=== PATIENT | female | born 1980 | race Two or more races ===

== ENCOUNTER 2018-08-04 18:51 | Emergency (ER) | payer SELFPAY ==
[2018-08-04 19:07] VITALS: BMI 23.3
[2018-08-04 19:08] VITALS: TEMP 98.7; O2SAT 100
[2018-08-04] MEDS ORDERED: Oxycodone/Acetaminophen 5/325 mg Tab PO STA (19:13)
--- NOTE | 2018-08-04 19:17 | ED PDOC ---
Arrival/HPI - General Chief Complaint: Dental Pain Historian: Patient - History of Present Illness Narrative History of Present Illness (Text): 08/04/18 19:13 37 y/o female,no significant pmh, nkda, c/o lt. lower molar dental pain x 2 days with no fall or trauma. Aching pain, no pain medication at home, painful to chew and eat, no change in vision, no palpitation, no night sweat, no numbness or tingling, no palpitation, no rash, no other medical or psychological complaints. Past Medical History - Provider Review Nursing Documentation Reviewed: Yes - Infectious Disease Hx of Infectious Diseases: None - Cardiac Hx Cardiac Disorders: No - Pulmonary Hx Respiratory Disorders: Yes Hx Asthma: Yes - Neurological Hx Neurological Disorder: No - HEENT Hx HEENT Disorder: No - Renal Hx Renal Disorder: No - Endocrine/Metabolic Hx Endocrine Disorders: No - Hematological/Oncological Hx Blood Disorders: No - Integumentary Hx Dermatological Disorder: No - Musculoskeletal/Rheumatological Hx Musculoskeletal Disorders: No - Gastrointestinal Hx Gastrointestinal Disorders: No - Genitourinary/Gynecological Hx Genitourinary Disorders: No - Psychiatric Hx Psychophysiologic Disorder: No Hx Substance Use: No - Surgical History Hx Section: Yes (x 1) Family/Social History - Physician Review Nursing Documentation Reviewed: Yes Family/Social History: Unknown Family HX Smoking Status: Never Smoked Hx Alcohol Use: No Hx Substance Use: No Allergies/Home Meds Allergies/Adverse Reactions: Allergies Unobtainable Allergy (Verified 08/04/18 19:07) Review of Systems - Review of Systems Constitutional: absent: Fatigue, Fevers Eyes: absent: Vision Changes ENT: Other (+dental pain). absent: Hearing Changes Respiratory: absent: SOB, Cough Gastrointestinal: absent: Abdominal Pain, Diarrhea, Nausea, Vomiting Musculoskeletal: absent: Arthralgias, Back Pain Skin: absent: Rash, Pruritis Neurological: absent: Headache Psychiatric: absent: Anxiety, Depression, Suicidal Ideation Physical Exam Vital Signs Reviewed: Yes Vital Signs Temp Pulse Resp BP Pulse Ox 08/04/18 19:07 98.7 F 76 19 163/85 H 100 Temperature: Afebrile Blood Pressure: Hypertensive Pulse: Regular Respiratory Rate: Normal Appearance: Positive for: Well-Appearing, Non-Toxic, Comfortable Pain Distress: Moderate Mental Status: Positive for: Alert and Oriented X 3 - Systems Exam Head: Present: Atraumatic, Normocephalic Pupils: Present: PERRL Extroacular Muscles: Present: EOMI Conjunctiva: Present: Normal Mouth: Present: Moist Mucous Membranes, Normal Lips, Normal Tounge, Other (+dental caries noted on the lt. lower molar noted with brown cracked teeth noted but there is no gingival abscess or gingivitis. ). No: Trismus Neck: Present: Normal Range of Motion, Trachea Midline. No: Meningeal Signs, MIDLINE TENDERNESS, Paraspinal Tenderness, Lymphadenopathy Respiratory/Chest: Present: Clear to Auscultation, Good Air Exchange. No: Respiratory Distress, Accessory Muscle Use Cardiovascular: Present: Regular Rate and Rhythm, Normal S1, S2. No: Murmurs Abdomen: No: Tenderness, Distention, Peritoneal Signs Back: Present: Normal Inspection. No: CVA Tenderness, Midline Tenderness, Paraspinal Tenderness, Pain with Leg Raise Upper Extremity: Present: Normal Inspection. No: Cyanosis, Edema Lower Extremity: Present: Normal Inspection. No: Edema Neurological: Present: GCS=15, CN II-XII Intact, Speech Normal, Motor Func Grossly Intact, Normal Cerebellar Funct, Gait Normal, Memory Normal Skin: Present: Warm, Dry, Normal Color. No: Rashes Lymphatic: No: Cervical Adenopathy Psychiatric: Present: Alert, Oriented x 3, Normal Insight, Normal Concentration Medical Decision Making ED Course and Treatment: 08/04/18 19:19 -Urine hcg -amoxicillin/toradol/perococet -Observe and reassess 08/04/18 19:46 -Urine hcg is negative -Pt. feels much better -pt. has no chin swelling. -BP improved and systolic is 144/84 now -Discharge home with motrin, amoxicillin, soft food diet, stay hydrated, salt water gargling, follow up with your own pmd and dentist within 2 days, return to the ER for any new or worsening signs or symptoms. - PA / WIRE PULLER / Resident Statement MD/DO has reviewed & agrees with the documentation as recorded. Disposition/Present on Arrival - Present on Arrival Any Indicators Present on Arrival: No History of DVT/PE: No History of Uncontrolled Diabetes: No Urinary Catheter: No History of Decub. Ulcer: No History Surgical Site Infection Following: None - Disposition Have Diagnosis and Disposition been Completed?: Yes Diagnosis: Dental caries, Pain, dental Disposition: HOME/ ROUTINE Disposition Time: 19:20 Patient Plan: Discharge Condition: IMPROVED Additional Instructions: -Discharge home with motrin, amoxicillin, soft food diet, stay hydrated, salt water gargling, follow up with your own pmd and dentist within 2 days, return to the ER for any new or worsening signs or symptoms. Prescriptions: Amoxicillin 500 mg PO TID #30 tab Ibuprofen [Motrin Tab] 600 mg PO QID PRN #30 tab PRN Reason: Other Referrals: [facility] [Outside] - Follow up with primary Forms: [employer] (Polish), WORK NOTE
[2018-08-04 19:52] VITALS: BP 144/85; PULSE 74; RESP 17
== END 2018-08-04 19:22 | disposition home or self-care (01) ==
LOC: ED 18:51
DX: K08.89 Other specified disorders of teeth and supporting structures (principal); K02.9 Dental caries, unspecified